=== PATIENT | male | born 1995 | race Two or more races ===

== ENCOUNTER 2019-09-27 21:13 | Emergency (ER) | payer SELFPAY ==
[~2019-09-27] VITALS: Ht 172.7 cm; Wt 65.8 kg
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
[2019-09-27] MEDS ORDERED: HYDROCODONE/APAP 5/325MG 1 EACH TABLET PO ONE (21:30)
[2019-09-27] MEDS ORDERED: HYDROCODONE/APAP 5/325MG 1 EACH TABLET ONE (21:34)
[2019-09-27] MEDS ORDERED: LIDOCAINE HCL/MPF 1% 30 ML VIAL IJ ONE (22:06)
[2019-09-27] MEDS ORDERED: TRAMADOL HCL 50 MG TABLET ONE (22:35)
[2019-09-27] MEDS ORDERED: TRAMADOL HCL 50 MG TABLET PO ONE (23:00)
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
--- NOTE | 2019-09-27 23:32 | NUR ---
Patient discharged to home in stable condition. Written and verbal after care instructions given. Patient verbalizes understanding of instruction. Pt ambulatory with a steady gait
[2019-09-27 23:35] VITALS: BP 132/75
== END 2019-09-27 23:35 | disposition home or self-care (01) ==
LOC: ER 21:13
DX: S62.316A Displaced fracture of base of fifth metacarpal bone, right hand, initial encounter for closed fracture (principal); F41.9 Anxiety disorder, unspecified; W22.01XA Walked into wall, initial encounter; Y93.89 Activity, other specified; Y92.89 Other specified places as the place of occurrence of the external cause; Y99.8 Other external cause status
CPT/HCPCS: 26605; 73130; 99284; J3490